=== PATIENT | female | born 1975 | race Caucasian/White ===

== ENCOUNTER 2018-07-14 13:00 | Outpatient (CLI) | payer MEDICARE, MEDICAID, SELFPAY | END 2018-07-14 13:01 | PROVIDERS: PCP Nurse Practitioner; Visit Provider Psychiatry & Neurology Neurology | DX: H81.49 Vertigo of central origin, unspecified ear (principal); E51.2 Wernicke's encephalopathy; G93.5 Compression of brain | CPT/HCPCS: 99213 ==

== ENCOUNTER → 2018-10-11 11:24 | Outpatient (BNVA) | payer MEDICARE, MEDICAID, SELFPAY | PROVIDERS: PCP Nurse Practitioner; Visit Provider Psychiatry & Neurology Neurology | DX: H81.49 Vertigo of central origin, unspecified ear (principal); G43.009 Migraine without aura, not intractable, without status migrainosus; E51.2 Wernicke's encephalopathy | CPT/HCPCS: 99214 ==